=== PATIENT | male | born 1930 | race Caucasian/White ===

== ENCOUNTER → 2018-08-08 | Outpatient (CLI) | payer OTHER ==
[~2018-08-08] MED LIST: ALFUZOSIN HCL10 MG; CARDIZEM60 MG; CARVEDILOL3.125 MG; COUMADIN10 MG; COUMADIN10 MG PO; COUMADIN7.5 MG; COUMADIN7.5 MG PO; DIGITEK125 MCG PO; FLOMAX; FUROSEMIDE20 MG PO; FUROSEMIDE40 MG; GABAPENTIN300 MG PO; GLIPIZIDE10 MG; GLIPIZIDE5 GM MC; GLUCOPHAGE XR500 MG; GLUCOPHAGE XR500 MG PO; GRALISE300 MG; LANOXIN0.25 MG; LANTUS SOLOSTAR3 ML; LIPITOR20 MG PO; METFORMIN HCL850 MG; PROVENTIL2.5 MG/3 M IH; SPIRIVA
== END | disposition home or self-care (01) ==
LOC: WOUND MED 09:55
DX: E11.621 Type 2 diabetes mellitus with foot ulcer (principal); L97.322 Non-pressure chronic ulcer of left ankle with fat layer exposed
CPT/HCPCS: 11042; G0463; A4554; A4930; A6216

== ENCOUNTER → 2018-08-15 | Outpatient (CLI) | payer OTHER | END | disposition home or self-care (01) | LOC: WOUND MED 10:59 | DX: E11.621 Type 2 diabetes mellitus with foot ulcer (principal); L97.322 Non-pressure chronic ulcer of left ankle with fat layer exposed | CPT/HCPCS: 11042; A4554; A4930; A6196; A6216; A6219 ==

== ENCOUNTER → 2018-08-22 | Outpatient (CLI) | payer OTHER | END | disposition home or self-care (01) | LOC: WOUND MED 10:41 | DX: E11.621 Type 2 diabetes mellitus with foot ulcer (principal); L97.322 Non-pressure chronic ulcer of left ankle with fat layer exposed | CPT/HCPCS: A4554; A4930; A6216; G0463 ==

== ENCOUNTER → 2018-10-10 | Outpatient (CLI) | payer OTHER | END | disposition home or self-care (01) | LOC: WOUND MED 10:52 | DX: E11.621 Type 2 diabetes mellitus with foot ulcer (principal); L97.822 Non-pressure chronic ulcer of other part of left lower leg with fat layer exposed | CPT/HCPCS: 11042; G0463; A4554; A4930; A6216; A6266 ==

== ENCOUNTER → 2018-10-24 | Outpatient (CLI) | payer OTHER | END | disposition home or self-care (01) | LOC: WOUND MED 11:22 | DX: E11.621 Type 2 diabetes mellitus with foot ulcer (principal); L97.822 Non-pressure chronic ulcer of other part of left lower leg with fat layer exposed | CPT/HCPCS: 11042; 11045; A4554; A4930; A6196; A6216; A6219 ==

== ENCOUNTER → 2018-11-14 | Outpatient (CLI) | payer OTHER | END | disposition home or self-care (01) | LOC: WOUND MED 10:26 | DX: E11.621 Type 2 diabetes mellitus with foot ulcer (principal); L97.822 Non-pressure chronic ulcer of other part of left lower leg with fat layer exposed | CPT/HCPCS: 11042; A4554; A4930; A6216 ==

== ENCOUNTER → 2018-11-21 | Outpatient (CLI) | payer OTHER | END | disposition home or self-care (01) | LOC: EDSTATUS 08:46 → WOUND MED 10:00 | DX: E11.621 Type 2 diabetes mellitus with foot ulcer (principal); L97.822 Non-pressure chronic ulcer of other part of left lower leg with fat layer exposed | CPT/HCPCS: 11042; A4554; A4930; A6216; A6219; A6266 ==

== ENCOUNTER → 2018-12-05 | Outpatient (CLI) | payer OTHER | END | disposition home or self-care (01) | LOC: WOUND MED 10:53 | DX: E11.621 Type 2 diabetes mellitus with foot ulcer (principal); L97.822 Non-pressure chronic ulcer of other part of left lower leg with fat layer exposed | CPT/HCPCS: 11042; A4554; A4930; A6216; A6219 ==

== ENCOUNTER → 2018-12-12 | Outpatient (CLI) | payer OTHER | END | disposition home or self-care (01) | LOC: WOUND MED 10:53 | DX: E11.621 Type 2 diabetes mellitus with foot ulcer (principal); L97.822 Non-pressure chronic ulcer of other part of left lower leg with fat layer exposed | CPT/HCPCS: 11042; A4554; A4930; A6216; A6219; A6266 ==

== ENCOUNTER 2018-12-13 11:09 | Inpatient (IN) | payer OTHER ==
[~2018-12-13] VITALS: Ht 175.3 cm; Wt 99.8 kg
--- NOTE | 2018-12-13 12:16 | NUR ---
SE RECIBE MASCULINO ALERTA CONCIENTE Y ORIENTADO EN COMPANIA DE CUIDADR QUE REFIERE DR. GARCIA MONTALVO LO ENVIO CON ORDENES DE ADMISION POR SCOT DE EMERGENCIA SE REALIZA TRIAGE Y SE PASA A AREA DE SECCION K
--- NOTE | 2018-12-13 13:17 | NUR ---
PACIENTE AL MOMENTO ESTABLE, ALERTA Y ORIENTADO X3, SIGNOS VITALES ESTABLES PENDIENTE A CONSULTA Y EN ESPERA DE RESULTADOS. SE CONTINUA MONITOREANDO POR CAMBIOS.
== END 2019-01-17 02:14 | disposition expired | DRG 622 ==
LOC: ER 11:09 → ICU 17:58 → SURH 17:58 → ICU 12-22 17:59
PROVIDERS: ADMIT Internal Medicine
PROC: 8E0ZXY6 Isolation (ICD-10-PCS; 2018-12-13)
PROC: 0JBR0ZZ Excision of Left Foot Subcutaneous Tissue and Fascia, Open Approach (ICD-10-PCS; principal; 2018-12-18)
PROC: 4A033R1 Measurement of Arterial Saturation, Peripheral, Percutaneous Approach (ICD-10-PCS; 2018-12-20)
PROC: 0T9B70Z Drainage of Bladder with Drainage Device, Via Natural or Artificial Opening (ICD-10-PCS; 2018-12-20)
PROC: B246ZZZ Ultrasonography of Right and Left Heart (ICD-10-PCS; 2018-12-21)
PROC: 4A12X4Z Monitoring of Cardiac Electrical Activity, External Approach (ICD-10-PCS; 2018-12-21)
PROC: B246ZZZ Ultrasonography of Right and Left Heart (ICD-10-PCS; 2018-12-21)
PROC: 5A1945Z Respiratory Ventilation, 24-96 Consecutive Hours (ICD-10-PCS; 2018-12-22)
PROC: 0BH17EZ Insertion of Endotracheal Airway into Trachea, Via Natural or Artificial Opening (ICD-10-PCS; 2018-12-22)
PROC: 0DH67UZ Insertion of Feeding Device into Stomach, Via Natural or Artificial Opening (ICD-10-PCS; 2018-12-22)
PROC: 3E0G76Z Introduction of Nutritional Substance into Upper GI, Via Natural or Artificial Opening (ICD-10-PCS; 2018-12-22)
PROC: C51DYZZ Planar Nuclear Medicine Imaging of Bilateral Lower Extremity Veins using Other Radionuclide (ICD-10-PCS; 2018-12-23)
DX: E11.621 Type 2 diabetes mellitus with foot ulcer (principal); J96.21 Acute and chronic respiratory failure with hypoxia; R65.21 Severe sepsis with septic shock; I50.43 Acute on chronic combined systolic (congestive) and diastolic (congestive) heart failure; J15.8 Pneumonia due to other specified bacteria; B37.1 Pulmonary candidiasis; J96.22 Acute and chronic respiratory failure with hypercapnia; I96 Gangrene, not elsewhere classified; I83.223 Varicose veins of left lower extremity with both ulcer of ankle and inflammation; I13.0 Hypertensive heart and chronic kidney disease with heart failure and stage 1 through stage 4 chronic kidney disease, or unspecified chronic kidney disease; L97.423 Non-pressure chronic ulcer of left heel and midfoot with necrosis of muscle; J91.8 Pleural effusion in other conditions classified elsewhere; B37.49 Other urogenital candidiasis; G92 Toxic encephalopathy; N17.9 Acute kidney failure, unspecified; I82.5Z3 Chronic embolism and thrombosis of unspecified deep veins of distal lower extremity, bilateral; L89.521 Pressure ulcer of left ankle, stage 1; E11.65 Type 2 diabetes mellitus with hyperglycemia; Z79.4 Long term (current) use of insulin; N18.3 Chronic kidney disease, stage 3 (moderate); E11.22 Type 2 diabetes mellitus with diabetic chronic kidney disease; G47.33 Obstructive sleep apnea (adult) (pediatric); I25.10 Atherosclerotic heart disease of native coronary artery without angina pectoris; N40.0 Benign prostatic hyperplasia without lower urinary tract symptoms; J44.9 Chronic obstructive pulmonary disease, unspecified; E66.01 Morbid (severe) obesity due to excess calories; Z79.01 Long term (current) use of anticoagulants; I16.0 Hypertensive urgency; B95.2 Enterococcus as the cause of diseases classified elsewhere; B96.5 Pseudomonas (aeruginosa) (mallei) (pseudomallei) as the cause of diseases classified elsewhere; I35.2 Nonrheumatic aortic (valve) stenosis with insufficiency; I27.29 Other secondary pulmonary hypertension